=== PATIENT | male | born 1995 | race Caucasian/White ===

== ENCOUNTER 2016-07-21 12:28 | Emergency (ER) | payer OTHER ==
--- NOTE | 2016-07-21 13:50 | EDDOCDS ---
Nurse's Notes [facility] Name: Kendrick Pardo Age: 21 yrs Sex: Male : 1995 Arrival Date: 07/21/2016 Time: 12:28 Bed TR1 Private MD: WAHERMELINDO WORRELL Diagnosis: Acute pain due to dececz-Rlga-sx bleeding/ Pain, [place] tooth extraction Presentation: 07/21 12:45 Presenting complaint: Patient states: that he had his wisdom teeth removed on ms18 07/11/2016 and today he started bleeding. Pt states that he gargled with salt water and put gauze on his gums and he has stopped bleeding at this time. Adult Sepsis Screening: The patient does not have new or worsening altered mentation. Patient's respiratory rate is less than 22. Systolic blood pressure is greater than 100. Patient has a qSOFA score of 0- Negative Sepsis Screen. Suicide/Homicide risk assessment- the patient denies having any suicidal and/or homicidal ideations and does not present with any other emotional, behavioral or mental health complaints. Status: The patient is an active duty environmental services coordinator. Transition of care: patient was not received from another setting of care. 12:45 Acuity: ART Level 5 ms18 12:45 Method Of Arrival: Walkin/Carried/Asstd ms18 Triage Assessment: 12:48 General: Appears in no apparent distress, comfortable, Behavior is appropriate for age, ms18 cooperative, pleasant. Pain: Denies pain. Pt requests HIV screening. Order Generated. Neurological: No deficits noted. Respiratory: No deficits noted. Derm: Skin is pink, warm & dry. Historical: - Allergies: no known allergies; - Home Meds: 1. Amoxicillin Oral Unknown every 8 hours - PMHx: none; - PSHx: none; - Social history: Smoking status: Patient uses tobacco products, current some day smoker. No barriers to communication noted, The patient speaks fluent Faroese. - Family history: Not pertinent. - : The pt / caregiver states he / she is not on anticoagulants. Home medication list is obtained from the patient. - Exposure Risk Screening:: None identified. Screenin:27 Screening information is obtained from the patient. Fall risk: No risks identified. ms18 Assistance ADL's: requires no assistance with activities of daily living. Abuse/DV Screen: The patient / caregiver reports he/she is: not in a situation that causes fear, pain or injury. Nutritional screening: No deficits noted. Advance Directives: There is no living will. home support is adequate. Assessment: 13:27 General: Appears in no apparent distress, comfortable, Behavior is appropriate for age, ms18 cooperative. Pain: Location: mouth Pain currently is 4 out of 10 on a pain scale. Neurological: No deficits noted. EENT: Oral mucosa is moist. Good dentition noted. Respiratory: No deficits noted. Derm: Skin is pink, warm & dry. 13:30 General: Awaiting HIV results at this time. ms18 Vital Signs: 12:30 BP 145 / 96; Pulse 63; Resp 18 S; Temp 97.3; Pulse Ox 100% on R/A; Weight 58.97 kg (R); dd6 Height 5 ft. 8 in. (172.72 cm) (R); 12:30 Body Mass Index 19.77 (58.97 kg, 172.72 cm) dd6 Vitals: 12:30 Log In Time: July 21, 2016 at 12:28. dd6 13:48 HIV Screen Result: Negative. ms18 ED Course: 12:29 Patient visited by Julio C Castellanos PCA. dd6 12:29 Patient moved to Waiting dd6 12:30 [facility]. dd6 12:30 Patient moved to Pre RCE dd6 12:47 Triage Initiated ms18 13:11 Patient moved to Triage 3 rs6 13:12 [facility] ef1 13:12 Ale Muro MD is Attending Physician. ef1 13:12 Patient visited by Mica Ozuna PA-C. ef1 13:20 Patient visited by Gelacio Hwang RN. bcj 13:21 Your, Dentist is Referral Physician. ef1 13:26 Patient moved to TR1 bc 13:27 Patient visited by Rayne Pardo RN. ms18 13:27 The patient / caregiver is instructed regarding the plan of care and ED course. Patient ms18 has correct armband on for positive identification. Property sent home with patient. :Personal belongings accompany Pt. 13:27 No IV's were initiated during this patient's visit. No procedures done that require ms18 assistance. 13:33 [facility] Payment Agreement was scanned into [employer] and attached to record. mm15 13:41 Patient name changed from Kendrick\S\\S\Edvin\S\ to Kendrick\S\Gelacio\S\Edvin. EDMS 13:48 Patient visited by Rayne Pardo RN. ms18 Order Results: There are currently no results for this order. Outcome: 13:21 Discharge ordered by Provider. ef1 13:27 Discharge Assessment: Patient awake, alert and oriented x 3. No cognitive and/or ms18 functional deficits noted. Patient verbalized understanding of disposition instructions. patient administered narcotics - no. The following High Risk Discharge criteria are identified: None. Discharged to home ambulatory. Condition: good Condition: stable Condition: improved. Discharge instructions given to patient, Instructed on discharge instructions, follow up and referral plans. medication usage, Demonstrated understanding of instructions, medications, Pt was receptive of discharge instructions/ teaching. Prescriptions given X 1. No special radiology studies were completed. 13:49 Patient left the ED. ms18 Signatures: Dispatcher [employer] EDAK Gelacio Hwang RN RN Julio C Aggarwal, CRIME SCENE INVESTIGATOR CRIME SCENE INVESTIGATOR dd6 Mica Ozuna, PA-C PA-C ef1 Teofilo Horn mm15 Rayne Pardo,MARU RN ms18 Falguni Santana, CRIME SCENE INVESTIGATOR CRIME SCENE INVESTIGATOR rs6 Corrections: (The following items were deleted from the chart) 13:20 12:48 Home Meds: none; ms18 dany MTDD
--- NOTE | 2016-07-21 13:50 | EDDOCDS ---
Physician Documentation [facility] Name: Kendrick Pardo Age: 21 yrs Sex: Male : 1995 Arrival Date: 07/21/2016 Time: 12:28 Bed TR1 Private MD: SDHERMELINDO WORRELL Disposition: 07/21/16 13:21 Discharged to Home/Self Care. Impression: Acute pain due to trauma - Post-op bleeding/ Pain, [place] tooth extraction. - Condition is Stable. - Discharge Instructions: Dental Pain, [id number]-[id number]. - Prescriptions for Ibuprofen 800 mg Oral Tablet - take 1 tablet by ORAL route every 8 hours As needed take with food; 30 tablet. - Medication Reconciliation, Local Pharmacy Hours form. - Follow up: Dentist Your; When: 1 - 2 days; Reason: Further diagnostic work-up, Recheck today's complaints, Continuance of care. Follow up: Emergency Department; Reason: Worsening of conditions. - Problem is new. - Symptoms have improved. Historical: - Allergies: no known allergies; - Home Meds: 1. Amoxicillin Oral Unknown every 8 hours - PMHx: none; - PSHx: none; - Social history: Smoking status: Patient uses tobacco products, current some day smoker. No barriers to communication noted, The patient speaks fluent Luxembourger. - Family history: Not pertinent. - : The pt / caregiver states he / she is not on anticoagulants. Home medication list is obtained from the patient. - Exposure Risk Screening:: None identified. Vital Signs: 07/21 12:30 BP 145 / 96; Pulse 63; Resp 18 S; Temp 97.3; Pulse Ox 100% on R/A; Weight 58.97 kg / dd6 130.01 lbs (R); Height 5 ft. 8 in. (172.72 cm) (R); 12:30 Body Mass Index 19.77 (58.97 kg, 172.72 cm) dd6 MDM: 12:50 HIV Screen, Nursing ordered. ms18 13:32 Financial registration complete. mm15 13:33 [facility] Payment Agreement was scanned into [employer] and attached to record. mm15 Signatures: Gelacio Hwang RN RN Mica Quarles PATonoC PATonoC ef1 Teofilo Horn mm15 Rayne Pardo RN RN ms18 The chart was reviewed and I authenticate all verbal orders and agree with the evaluation and treatment provided.Corrections: (The following items were deleted from the chart) 13:20 12:48 Home Meds: none; ms18 [facility] Attachments: 13:33 [facility] Payment Agreement mm15 MTDD
--- NOTE | 2016-07-23 14:50 | EDDOCDS ---
Physician Documentation [facility] Name: Kendrick Pardo Age: 21 yrs Sex: Male : 1995 Arrival Date: 07/21/2016 Time: 12:28 Bed TR1 Private MD: IDHERMELINDO WORRELL Disposition: 07/21/16 13:21 Discharged to Home/Self Care. Impression: Acute pain due to trauma - Post-op bleeding/ Pain, [place] tooth extraction. - Condition is Stable. - Discharge Instructions: Dental Pain, [id number]. - Prescriptions for Ibuprofen 800 mg Oral Tablet - take 1 tablet by ORAL route every 8 hours As needed take with food; 30 tablet. - Medication Reconciliation, Local Pharmacy Hours form. - Follow up: Dentist Your; When: 1 - 2 days; Reason: Further diagnostic work-up, Recheck today's complaints, Continuance of care. Follow up: Emergency Department; Reason: Worsening of conditions. - Problem is new. - Symptoms have improved. Historical: - Allergies: no known allergies; - Home Meds: 1. Amoxicillin Oral Unknown every 8 hours - PMHx: none; - PSHx: none; - Social history: Smoking status: Patient uses tobacco products, current some day smoker. No barriers to communication noted, The patient speaks fluent Dutch. - Family history: Not pertinent. - : The pt / caregiver states he / she is not on anticoagulants. Home medication list is obtained from the patient. - Exposure Risk Screening:: None identified. Vital Signs: 07/21 12:30 BP 145 / 96; Pulse 63; Resp 18 S; Temp 97.3; Pulse Ox 100% on R/A; Weight 58.97 kg / dd6 130.01 lbs (R); Height 5 ft. 8 in. (172.72 cm) (R); 12:30 Body Mass Index 19.77 (58.97 kg, 172.72 cm) dd6 MDM: 12:50 HIV Screen, Nursing ordered. ms18 13:32 Financial registration complete. mm15 13:33 [facility] Payment Agreement was scanned into [employer] and attached to record. mm15 15:27 T-Sheet-- Draft Copy was scanned into [employer] and attached to record. klr Signatures: Gelacio Hwang RN RN Mica Quarles PA-C NINO ef1 Teofilo Horn mm15 Rayne Pardo RN RN ms18 Andra Ramirez The chart was reviewed and I authenticate all verbal orders and agree with the evaluation and treatment provided.Corrections: (The following items were deleted from the chart) 13:20 12:48 Home Meds: none; ms18 bcj Attachments: 13:33 [facility] Payment Agreement mm15 15:27 T-Sheet-- Draft Copy klr Chart Complete MTDD
--- NOTE | 2016-07-23 14:50 | EDDOCDS ---
Nurse's Notes [facility] Name: Kendrick Pardo Age: 21 yrs Sex: Male : 1995 Arrival Date: 07/21/2016 Time: 12:28 Bed TR1 Private MD: TNHERMELINDO WORRELL Diagnosis: Acute pain due to mpfnmk-Dmnr-zg bleeding/ Pain, [place] tooth extraction Presentation: 07/21 12:45 Presenting complaint: Patient states: that he had his wisdom teeth removed on ms18 07/11/2016 and today he started bleeding. Pt states that he gargled with salt water and put gauze on his gums and he has stopped bleeding at this time. Adult Sepsis Screening: The patient does not have new or worsening altered mentation. Patient's respiratory rate is less than 22. Systolic blood pressure is greater than 100. Patient has a qSOFA score of 0- Negative Sepsis Screen. Suicide/Homicide risk assessment- the patient denies having any suicidal and/or homicidal ideations and does not present with any other emotional, behavioral or mental health complaints. Status: The patient is an active duty card services specialist. Transition of care: patient was not received from another setting of care. 12:45 Acuity: ART Level 5 ms18 12:45 Method Of Arrival: Walkin/Carried/Asstd ms18 Triage Assessment: 12:48 General: Appears in no apparent distress, comfortable, Behavior is appropriate for age, ms18 cooperative, pleasant. Pain: Denies pain. Pt requests HIV screening. Order Generated. Neurological: No deficits noted. Respiratory: No deficits noted. Derm: Skin is pink, warm & dry. Historical: - Allergies: no known allergies; - Home Meds: 1. Amoxicillin Oral Unknown every 8 hours - PMHx: none; - PSHx: none; - Social history: Smoking status: Patient uses tobacco products, current some day smoker. No barriers to communication noted, The patient speaks fluent Thai. - Family history: Not pertinent. - : The pt / caregiver states he / she is not on anticoagulants. Home medication list is obtained from the patient. - Exposure Risk Screening:: None identified. Screenin:27 Screening information is obtained from the patient. Fall risk: No risks identified. ms18 Assistance ADL's: requires no assistance with activities of daily living. Abuse/DV Screen: The patient / caregiver reports he/she is: not in a situation that causes fear, pain or injury. Nutritional screening: No deficits noted. Advance Directives: There is no living will. home support is adequate. Assessment: 13:27 General: Appears in no apparent distress, comfortable, Behavior is appropriate for age, ms18 cooperative. Pain: Location: mouth Pain currently is 4 out of 10 on a pain scale. Neurological: No deficits noted. EENT: Oral mucosa is moist. Good dentition noted. Respiratory: No deficits noted. Derm: Skin is pink, warm & dry. 13:30 General: Awaiting HIV results at this time. ms18 Vital Signs: 12:30 BP 145 / 96; Pulse 63; Resp 18 S; Temp 97.3; Pulse Ox 100% on R/A; Weight 58.97 kg (R); dd6 Height 5 ft. 8 in. (172.72 cm) (R); 12:30 Body Mass Index 19.77 (58.97 kg, 172.72 cm) dd6 Vitals: 12:30 Log In Time: July 21, 2016 at 12:28. dd6 13:48 HIV Screen Result: Negative. ms18 ED Course: 12:29 Patient visited by Julio C Castellanos PCA. dd6 12:29 Patient moved to Waiting dd6 12:30 [facility]. dd6 12:30 Patient moved to Pre RCE dd6 12:47 Triage Initiated ms18 13:11 Patient moved to Triage 3 rs6 13:12 [facility] Oz[facility] ef[facility] 13:12 Ale Muro MD is Attending Physician. ef1 13:12 Patient visited by Mica Ozuna PA-C. ef1 13:20 Patient visited by Gelacio Hwang RN. bcj 13:21 Your, Dentist is Referral Physician. ef1 13:26 Patient moved to TR1 bc 13:27 Patient visited by Rayne Pardo RN. ms18 13:27 The patient / caregiver is instructed regarding the plan of care and ED course. Patient ms18 has correct armband on for positive identification. Property sent home with patient. :Personal belongings accompany Pt. 13:27 No IV's were initiated during this patient's visit. No procedures done that require ms18 assistance. 13:33 [facility] Payment Agreement was scanned into [employer] and attached to record. mm15 13:41 Patient name changed from Kendrick\S\\S\Edvin\S\ to Kendrick\S\Page\S\Edvin. EDMS 13:48 Patient visited by Rayne Pardo RN. ms18 15:27 T-Sheet-- Draft Copy was scanned into [employer] and attached to record. klr Order Results: There are currently no results for this order. Outcome: 13:21 Discharge ordered by Provider. ef1 13:27 Discharge Assessment: Patient awake, alert and oriented x 3. No cognitive and/or ms18 functional deficits noted. Patient verbalized understanding of disposition instructions. patient administered narcotics - no. The following High Risk Discharge criteria are identified: None. Discharged to home ambulatory. Condition: good Condition: stable Condition: improved. Discharge instructions given to patient, Instructed on discharge instructions, follow up and referral plans. medication usage, Demonstrated understanding of instructions, medications, Pt was receptive of discharge instructions/ teaching. Prescriptions given X 1. No special radiology studies were completed. 13:49 Patient left the ED. ms18 Signatures: Dispatcher [employer] EDFL Gelacio Hwang, RN RN Julio C Aggarwal, INSTRUMENT REPAIR SUPERVISOR INSTRUMENT REPAIR SUPERVISOR dd6 Mica Ozuna, PA-C PA-C ef1 Teofilo Horn mm15 Rayne Pardo,MARU RN ms18 Falguni Santana, INSTRUMENT REPAIR SUPERVISOR INSTRUMENT REPAIR SUPERVISOR rs6 Andra Ramirez Corrections: (The following items were deleted from the chart) 13:20 12:48 Home Meds: none; ms18 [facility] Chart Complete MTDD
--- NOTE | 2016-07-23 14:50 | EDDOCDS ---
Physician Documentation [facility] Name: Kendrick Pardo Age: 21 yrs Sex: Male : 1995 Arrival Date: 07/21/2016 Time: 12:28 Bed TR1 Private MD: DEHERMELINDO WORRELL Disposition: 07/21/16 13:21 Discharged to Home/Self Care. Impression: Acute pain due to trauma - Post-op bleeding/ Pain, Oley tooth extraction. - Condition is Stable. - Discharge Instructions: Dental Pain, [id number]. - Prescriptions for Ibuprofen 800 mg Oral Tablet - take 1 tablet by ORAL route every 8 hours As needed take with food; 30 tablet. - Medication Reconciliation, Local Pharmacy Hours form. - Follow up: Dentist Your; When: 1 - 2 days; Reason: Further diagnostic work-up, Recheck today's complaints, Continuance of care. Follow up: Emergency Department; Reason: Worsening of conditions. - Problem is new. - Symptoms have improved. Historical: - Allergies: no known allergies; - Home Meds: 1. Amoxicillin Oral Unknown every 8 hours - PMHx: none; - PSHx: none; - Social history: Smoking status: Patient uses tobacco products, current some day smoker. No barriers to communication noted, The patient speaks fluent Ghanaian. - Family history: Not pertinent. - : The pt / caregiver states he / she is not on anticoagulants. Home medication list is obtained from the patient. - Exposure Risk Screening:: None identified. Vital Signs: 07/21 12:30 BP 145 / 96; Pulse 63; Resp 18 S; Temp 97.3; Pulse Ox 100% on R/A; Weight 58.97 kg / dd6 130.01 lbs (R); Height 5 ft. 8 in. (172.72 cm) (R); 12:30 Body Mass Index 19.77 (58.97 kg, 172.72 cm) dd6 MDM: 12:50 HIV Screen, Nursing ordered. ms18 13:32 Financial registration complete. mm15 13:33 [facility] Payment Agreement was scanned into [employer] and attached to record. mm15 15:27 T-Sheet-- Draft Copy was scanned into [employer] and attached to record. klr Signatures: Gelacio Hwang RN RN Mica Quarles PA-C NINO ef1 Teofilo Horn mm15 Rayne Pardo RN RN ms18 Andra Ramirez The chart was reviewed and I authenticate all verbal orders and agree with the evaluation and treatment provided.Corrections: (The following items were deleted from the chart) 13:20 12:48 Home Meds: none; ms18 bcj Attachments: 13:33 [facility] Payment Agreement mm15 15:27 T-Sheet-- Draft Copy klr Chart Complete MTDD
== END 2016-07-21 13:49 | disposition home or self-care (01) ==
LOC: M ED 12:28
DX: K91.841 Postprocedural hemorrhage of a digestive system organ or structure following other procedure (principal); K08.9 Disorder of teeth and supporting structures, unspecified; F17.200 Nicotine dependence, unspecified, uncomplicated

== ENCOUNTER 2016-07-21 15:34 | Emergency (ER) | payer OTHER ==
--- NOTE | 2016-07-21 17:38 | EDDOCDS ---
Nurse's Notes [facility] Name: Kendrick Pardo Age: 21 yrs Sex: Male : 1995 Arrival Date: 07/21/2016 Time: 15:34 Bed 3 Private MD: NDHERMELINDO WORRELL Diagnosis: Dry mouth, unspecified-not dry mouth - laceration mouth Presentation: 07/21 15:38 Presenting complaint: Patient states: Patient reports having wisdom teeth pulled two jmb weeks ago and they started bleeding. Adult Sepsis Screening: The patient does not have new or worsening altered mentation. Patient's respiratory rate is less than 22. Systolic blood pressure is greater than 100. Patient has a qSOFA score of 0- Negative Sepsis Screen. Suicide/Homicide risk assessment- the patient denies having any suicidal and/or homicidal ideations and does not present with any other emotional, behavioral or mental health complaints. Status: Patient is not a nutritional services host or dependent. Transition of care: patient was not received from another setting of care. 15:38 Acuity: ART Level 4 [facility] 15:38 Method Of Arrival: Walkin/Carried/Asstd [facility] Triage Assessment: 15:39 General: Appears in no apparent distress, Behavior is appropriate for age, cooperative. [facility] Pain: Denies pain. Location: mouth. HIV screening NA for this visit Offered previously. Neurological: Level of Consciousness is awake, alert, obeys commands, Oriented to person, place, time, Speech is normal, Facial symmetry appears normal, Facial symmetry: tongue is midline. EENT: Oral mucosa is moist. Respiratory: Airway is patent Respiratory effort is even, unlabored, Respiratory pattern is regular, symmetrical. Derm: Skin is pink, warm & dry. Musculoskeletal: Range of motion intact in all extremities. Historical: - Allergies: No known drug Allergies; - Home Meds: 1. none - PMHx: none; - PSHx: wisdom teeth removal; - Social history: Smoking status: Patient uses tobacco products, light tobacco smoker. No barriers to communication noted, The patient speaks fluent Portuguese, Speaks appropriately for age. - Family history: Not pertinent. - : The pt / caregiver states he / she is not on anticoagulants. Home medication list is obtained from the patient. - Exposure Risk Screening:: None identified. Screenin:36 Screening information is obtained from the patient. Fall risk: No risks identified. dy Assistance ADL's: requires no assistance with activities of daily living. Abuse/DV Screen: The patient / caregiver reports he/she is: not in a situation that causes fear, pain or injury. Nutritional screening: No deficits noted. Advance Directives: There is no active DNR order. home support is adequate. Assessment: 17:35 General: Appears in no apparent distress, Behavior is appropriate for age, cooperative. dy Pain: Location: mouth. Vital Signs: 15:35 BP 139 / 98; Pulse 88; Resp 18; Temp 98.0; Pulse Ox 100% ; Weight 58.97 kg; Height 5 elp ft. 8 in. (172.72 cm); Pain 0/10; 15:35 Body Mass Index 19.77 (58.97 kg, 172.72 cm) el Vitals: 15:35 Log In Time: July 21, 2016 at 15:33. elp ED Course: 15:35 Patient visited by Caro Queen PCA. elp 15:35 [facility] is Private Physician. elp 15:35 Patient moved to Waiting elp 15:36 Patient visited by Caro Queen PCA. elp 15:36 Patient moved to Pre RCE elp 15:39 Triage Initiated jmb 17:19 Patient moved to 3 mlb1 17:24 Ale Muro MD is Attending Physician. sd1 17:24 Patient visited by Ale Muro MD. sd1 17:24 [facility] is Referral Physician. sd1 17:35 The patient / caregiver is instructed regarding the plan of care and ED course. Patient dy has correct armband on for positive identification. 17:35 No IV's were initiated during this patient's visit. No procedures done that require dy assistance. Order Results: There are currently no results for this order. Outcome: 17:27 Discharge ordered by Provider. sd1 17:36 Discharge Assessment: patient administered narcotics - no. The following High Risk dy Discharge criteria are identified: None. Discharged to home ambulatory. Condition: good. Discharge instructions given to patient, Instructed on discharge instructions, follow up and referral plans. medication usage, Demonstrated understanding of instructions, medications, Pt was receptive of discharge instructions/ teaching. Prescriptions given X 1. No special radiology studies were completed. Property sent home with patient. 17:37 Patient left the ED. dy Signatures: Ale Muro MD MD sd1 Alek Santiago RN RN Rogerio Astudillo RN RN mlb1 Caro Queen PCA PCA elp Becker, Joshua, RN RN mattb MTDD
--- NOTE | 2016-07-21 17:38 | EDDOCDS ---
Physician Documentation [facility] Name: Kendrick Pardo Age: 21 yrs Sex: Male : 1995 Arrival Date: 07/21/2016 Time: 15:34 Bed 3 [facility] Disposition: 07/21/16 17:27 Discharged to Home/Self Care. Impression: Dry mouth, unspecified - not dry mouth - laceration mouth. - Condition is Stable. - Discharge Instructions: Mouth Laceration, Mouth Laceration, [id number]. - Prescriptions for Peridex 0.12 % Mucous Membrane mouthwash - place 15 milliliter by MUCOUS MEMBRANE route 2 times per day (after meals), swish in mouth for 30 seconds then spit out; 200 milliliter. - Medication Reconciliation, Local Pharmacy Hours form. - [facility] ; When: Call to arrange an appointment. - Problem is new. - Symptoms are unchanged. Historical: - Allergies: No known drug Allergies; - Home Meds: 1. none - PMHx: none; - PSHx: wisdom teeth removal; - Social history: Smoking status: Patient uses tobacco products, light tobacco smoker. No barriers to communication noted, The patient speaks fluent Welsh, Speaks appropriately for age. - Family history: Not pertinent. - : The pt / caregiver states he / she is not on anticoagulants. Home medication list is obtained from the patient. - Exposure Risk Screening:: None identified. Vital Signs: 07/21 15:35 BP 139 / 98; Pulse 88; Resp 18; Temp 98.0; Pulse Ox 100% ; Weight 58.97 kg / 130.01 elp lbs; Height 5 ft. 8 in. (172.72 cm); Pain 0/10; 15:35 Body Mass Index 19.77 (58.97 kg, 172.72 cm) elp MDM: 17:35 Financial registration complete. [email or web address] Signatures: Ale Muro MD MD sd1 Alek Santiago, RN Leandro Kim RN RN Shalini Trejo, Reg Reg ks16 MTDD
--- NOTE | 2016-07-23 18:38 | EDDOCDS ---
Physician Documentation [facility] Name: Kendrick Pardo Age: 21 yrs Sex: Male : 1995 Arrival Date: 07/21/2016 Time: 15:34 Bed 3 [facility] Disposition: 07/21/16 17:27 Discharged to Home/Self Care. Impression: Dry mouth, unspecified - not dry mouth - laceration mouth. - Condition is Stable. - Discharge Instructions: Mouth Laceration, Mouth Laceration, [id number]. - Prescriptions for Peridex 0.12 % Mucous Membrane mouthwash - place 15 milliliter by MUCOUS MEMBRANE route 2 times per day (after meals), swish in mouth for 30 seconds then spit out; 200 milliliter. - Medication Reconciliation, Local Pharmacy Hours form. - [facility] ; When: Call to arrange an appointment. - Problem is new. - Symptoms are unchanged. Historical: - Allergies: No known drug Allergies; - Home Meds: 1. none - PMHx: none; - PSHx: wisdom teeth removal; - Social history: Smoking status: Patient uses tobacco products, light tobacco smoker. No barriers to communication noted, The patient speaks fluent Azerbaijani, Speaks appropriately for age. - Family history: Not pertinent. - : The pt / caregiver states he / she is not on anticoagulants. Home medication list is obtained from the patient. - Exposure Risk Screening:: None identified. Vital Signs: 07/21 15:35 BP 139 / 98; Pulse 88; Resp 18; Temp 98.0; Pulse Ox 100% ; Weight 58.97 kg / 130.01 elp lbs; Height 5 ft. 8 in. (172.72 cm); Pain 0/10; 15:35 Body Mass Index 19.77 (58.97 kg, 172.72 cm) elp MDM: 17:35 Financial registration complete. [id number] 17:48 [facility] Payment Agreement was scanned into [employer] and attached to record. zo 21:48 T-Sheet-- Draft Copy was scanned into [employer] and attached to record. klr Signatures: Ale Muro MD MD sd1 Alek Santiago RN RN Arnaldo Torres Joshua, RN RN Sara Trejoly, Reg Reg ks16 Andra Ramirez The chart was reviewed and I authenticate all verbal orders and agree with the evaluation and treatment provided.Attachments: 17:48 [facility] Payment Agreement zo 21:48 T-Sheet-- Draft Copy [email or web address] Chart Complete MTDD
--- NOTE | 2016-07-23 18:38 | EDDOCDS ---
Physician Documentation [facility] Name: Kendrick Pardo Age: 21 yrs Sex: Male : 1995 Arrival Date: 07/21/2016 Time: 15:34 Bed 3 [facility] Disposition: 07/21/16 17:27 Discharged to Home/Self Care. Impression: Dry mouth, unspecified - not dry mouth - laceration mouth. - Condition is Stable. - Discharge Instructions: Mouth Laceration, Mouth Laceration, [id number]. - Prescriptions for Peridex 0.12 % Mucous Membrane mouthwash - place 15 milliliter by MUCOUS MEMBRANE route 2 times per day (after meals), swish in mouth for 30 seconds then spit out; 200 milliliter. - Medication Reconciliation, Local Pharmacy Hours form. - [facility]: [facility] ; When: Call to arrange an appointment. - Problem is new. - Symptoms are unchanged. Historical: - Allergies: No known drug Allergies; - Home Meds: 1. none - PMHx: none; - PSHx: wisdom teeth removal; - Social history: Smoking status: Patient uses tobacco products, light tobacco smoker. No barriers to communication noted, The patient speaks fluent Uruguayan, Speaks appropriately for age. - Family history: Not pertinent. - : The pt / caregiver states he / she is not on anticoagulants. Home medication list is obtained from the patient. - Exposure Risk Screening:: None identified. Vital Signs: 07/21 15:35 BP 139 / 98; Pulse 88; Resp 18; Temp 98.0; Pulse Ox 100% ; Weight 58.97 kg / 130.01 elp lbs; Height 5 ft. 8 in. (172.72 cm); Pain 0/10; 15:35 Body Mass Index 19.77 (58.97 kg, 172.72 cm) elp MDM: 17:35 Financial registration complete. [id number] 17:48 [facility] Payment Agreement was scanned into [employer] and attached to record. zo 21:48 T-Sheet-- Draft Copy was scanned into [employer] and attached to record. klr Signatures: Ale Muro MD MD sd1 Alek Santiago RN RN Arnaldo Torres Joshua, RN RN Sara Trejoly, Reg Reg ks16 Andra Ramirez The chart was reviewed and I authenticate all verbal orders and agree with the evaluation and treatment provided.Attachments: 17:48 [facility] Payment Agreement zo 21:48 T-Sheet-- Draft Copy [email or web address] Chart Complete MTDD
--- NOTE | 2016-07-23 18:38 | EDDOCDS ---
Nurse's Notes [facility] Name: Kendrick Pardo Age: 21 yrs Sex: Male : 1995 Arrival Date: 07/21/2016 Time: 15:34 Bed 3 Private MD: MTHERMELINDO WORRELL Diagnosis: Dry mouth, unspecified-not dry mouth - laceration mouth Presentation: 07/21 15:38 Presenting complaint: Patient states: Patient reports having wisdom teeth pulled two jmb weeks ago and they started bleeding. Adult Sepsis Screening: The patient does not have new or worsening altered mentation. Patient's respiratory rate is less than 22. Systolic blood pressure is greater than 100. Patient has a qSOFA score of 0- Negative Sepsis Screen. Suicide/Homicide risk assessment- the patient denies having any suicidal and/or homicidal ideations and does not present with any other emotional, behavioral or mental health complaints. Status: Patient is not a supervisor [employer] service or dependent. Transition of care: patient was not received from another setting of care. 15:38 Acuity: ART Level 4 [facility] 15:38 Method Of Arrival: Walkin/Carried/Asstd [facility] Triage Assessment: 15:39 General: Appears in no apparent distress, Behavior is appropriate for age, cooperative. [facility] Pain: Denies pain. Location: mouth. HIV screening NA for this visit Offered previously. Neurological: Level of Consciousness is awake, alert, obeys commands, Oriented to person, place, time, Speech is normal, Facial symmetry appears normal, Facial symmetry: tongue is midline. EENT: Oral mucosa is moist. Respiratory: Airway is patent Respiratory effort is even, unlabored, Respiratory pattern is regular, symmetrical. Derm: Skin is pink, warm & dry. Musculoskeletal: Range of motion intact in all extremities. Historical: - Allergies: No known drug Allergies; - Home Meds: 1. none - PMHx: none; - PSHx: wisdom teeth removal; - Social history: Smoking status: Patient uses tobacco products, light tobacco smoker. No barriers to communication noted, The patient speaks fluent Bulgarian, Speaks appropriately for age. - Family history: Not pertinent. - : The pt / caregiver states he / she is not on anticoagulants. Home medication list is obtained from the patient. - Exposure Risk Screening:: None identified. Screenin:36 Screening information is obtained from the patient. Fall risk: No risks identified. dy Assistance ADL's: requires no assistance with activities of daily living. Abuse/DV Screen: The patient / caregiver reports he/she is: not in a situation that causes fear, pain or injury. Nutritional screening: No deficits noted. Advance Directives: There is no active DNR order. home support is adequate. Assessment: 17:35 General: Appears in no apparent distress, Behavior is appropriate for age, cooperative. dy Pain: Location: mouth. Vital Signs: 15:35 BP 139 / 98; Pulse 88; Resp 18; Temp 98.0; Pulse Ox 100% ; Weight 58.97 kg; Height 5 elp ft. 8 in. (172.72 cm); Pain 0/10; 15:35 Body Mass Index 19.77 (58.97 kg, 172.72 cm) el Vitals: 15:35 Log In Time: July 21, 2016 at 15:33. elp ED Course: 15:35 Patient visited by Caro Queen PCA. elp 15:[address] [facility] is Private Physician. elp 15:35 Patient moved to Waiting elp 15:36 Patient visited by Caro Queen PCA. elp 15:36 Patient moved to Pre RCE elp 15:39 Triage Initiated jmb 17:19 Patient moved to 3 mlb1 17:24 Ale Muro MD is Attending Physician. sd1 17:24 Patient visited by Ale Muro MD. sd1 17:[address] [facility] is Referral Physician. sd1 17:35 The patient / caregiver is instructed regarding the plan of care and ED course. Patient dy has correct armband on for positive identification. 17:35 No IV's were initiated during this patient's visit. No procedures done that require dy assistance. 17:48 [facility] Payment Agreement was scanned into [employer] and attached to record. zo 21:48 T-Sheet-- Draft Copy was scanned into [employer] and attached to record. klr Order Results: There are currently no results for this order. Outcome: 17:27 Discharge ordered by Provider. sd1 17:36 Discharge Assessment: patient administered narcotics - no. The following High Risk dy Discharge criteria are identified: None. Discharged to home ambulatory. Condition: good. Discharge instructions given to patient, Instructed on discharge instructions, follow up and referral plans. medication usage, Demonstrated understanding of instructions, medications, Pt was receptive of discharge instructions/ teaching. Prescriptions given X 1. No special radiology studies were completed. Property sent home with patient. 17:37 Patient left the ED. dy Signatures: Ale Muro MD MD sd1 Alek Santiago, RN RN Rogerio Astudillo RN RN mlb1 Arnaldo Caceres Erin, PCA PCA elp Becker, JoshuaRN RN Andra Leavitt Chart Complete MTDD
== END 2016-07-21 17:37 | disposition home or self-care (01) ==
LOC: M ED 15:34
DX: S01.512A Laceration without foreign body of oral cavity, initial encounter (principal); X58.XXXA Exposure to other specified factors, initial encounter; Y92.89 Other specified places as the place of occurrence of the external cause; Y93.89 Activity, other specified; Y99.8 Other external cause status; Z98.890 Other specified postprocedural states; F17.200 Nicotine dependence, unspecified, uncomplicated